=== PATIENT | female | born 1985 | race Caucasian/White ===

== ENCOUNTER 2018-12-31 06:58 | Inpatient (IN) | payer MEDICAID ==
[~2018-12-31] VITALS: Ht 170.2 cm; Wt 63.5 kg
[~2018-12-31 06:58] MED LIST: ASPIRIN; FERR27TA
[2018-12-31 07:11] VITALS: BP 109/70; PULSE 74; Ht 170.2 cm; Wt 63.5 kg
[2018-12-31] MEDS ORDERED: LACTATED RINGER'S 1,000 ML IV PRN (07:48)
[2018-12-31] MEDS ORDERED: METHYLERGONOVINE 0.2 MG INJ IM PRN ×2 (08:00→15:30)
[2018-12-31] MEDS ORDERED: MISOPROSTOL 200 MCG TAB PR PRN ×2 (08:00→15:30)
[2018-12-31] MEDS ORDERED: OXYTOCIN 30 UNITS/LR 500 ML IV PRN ×2 (08:00→15:30)
[2018-12-31] MEDS ORDERED: OXYTOCIN 30 UNITS/LR 500 ML IV SCH ×3 (08:00→15:15)
[2018-12-31] MEDS ORDERED: LIDOCAINE 1% (MPF) 30 ML INJ INJ PRN (08:00)
[2018-12-31] MEDS ORDERED: BUTORPHANOL 2 MG INJ IV PRN ×2 (08:00)
[2018-12-31] MEDS ORDERED: IBUPROFEN 600 MG TAB PO PRN (08:00)
[2018-12-31] MEDS ORDERED: AMPICILLIN 2 GM/NS (PMX) 100 ML IV ONE (08:00)
[2018-12-31] MEDS ORDERED: CARBOPROST 250 MCG INJ IM PRN ×2 (08:00→15:30)
[2018-12-31] MEDS: LACTATED RINGER'S 1,000 ML IV SCH ×2 (09:20→17:25)
[2018-12-31] MEDS ORDERED: FENTAnyl 2MCG/ML-ROPIV 0.2% 100 ML ONE (09:33)
[2018-12-31] MEDS ORDERED: FENTAnyl 2MCG/ML-ROPIV 0.2% 100 ML BAG EPI SCH (10:00)
[2018-12-31] MEDS ORDERED: NALBUPHINE HCL (10 MG/1 ML) INJ IV PRN (10:00)
[2018-12-31] MEDS ORDERED: ONDANSETRON 4 MG INJ IV PRN ×2 (10:00→15:30)
[2018-12-31] MEDS ORDERED: ZOLPIDEM 5 MG TAB PO PRN (10:00)
[2018-12-31] MEDS ORDERED: NALOXONE (0.4 MG/ML) INJ IV PRN (10:00)
[2018-12-31] MEDS ORDERED: BENZOCAINE 20% 56 ML SPRAY TOP PRN (15:30)
[2018-12-31] MEDS ORDERED: CEFAZOLIN 2 GM/50 ML (PMX) 50 ML IVPB ONE (15:30)
[2018-12-31] MEDS ORDERED: ACETAMINOPHEN 325 MG TAB PO PRN ×2 (15:30)
[2018-12-31] MEDS ORDERED: WITCH HAZEL/GLYCERIN PAD PR PRN (15:30)
[2018-12-31] MEDS ORDERED: DIBUCAINE 1% 30 GM OINT TOP PRN (15:30)
[2018-12-31] MEDS ORDERED: MAGNESIUM HYDROXIDE 30ML CUP PO PRN (15:30)
[2018-12-31] MEDS: AMPICILLIN 1 GM/NS (PMX) 50 ML IV SCH ×3 (16:00→20:00)
[2018-12-31] MEDS: LACTATED RINGER'S 1,000 ML IV* SCH ×2 (17:25→23:15)
[2018-12-31] MEDS: IBUPROFEN 600 MG TAB PO PRN (17:31)
[2018-12-31] MEDS: SENNA/DOCUSATE NA (8.6MG/50MG) TAB PO PRN (21:04)
[2019-01-01] MEDS: IBUPROFEN 600 MG TAB PO PRN ×6 (00:08→18:12)
[2019-01-01] MEDS: LANOLIN HPA 1 PKT TOP PRN ×2 (00:09→09:31)
[2019-01-01] MEDS: AMPICILLIN 1 GM/NS (PMX) 50 ML IV SCH ×2 (04:00)
[2019-01-01 08:00] VITALS: BP 108/70; PULSE 56; RESP 16
[2019-01-01] MEDS ORDERED: METHADONE 10 MG TAB PO ONE (09:00)
[2019-01-01] MEDS: SENNA/DOCUSATE NA (8.6MG/50MG) TAB PO PRN (09:31)
[2019-01-01 12:00] VITALS: BP 101/59; PULSE 53; RESP 18
[2019-01-01] MEDS ORDERED: NALOXONE (0.4 MG/ML) INJ IV PRN (13:30)
[2019-01-01 16:10] VITALS: BP 97/57; PULSE 64; RESP 16
[2019-01-01 20:30] VITALS: BP 98/52; PULSE 62; RESP 19
[2019-01-02] MEDS: IBUPROFEN 600 MG TAB PO PRN ×2 (02:32→08:03)
[2019-01-02 04:30] VITALS: BP 109/63; PULSE 55; RESP 18
[2019-01-02 07:30] VITALS: BP 92/63; PULSE 60; RESP 16
[2019-01-02] MEDS ORDERED: METHADONE 10 MG TAB PO ONE (10:30)
== END 2019-01-02 13:55 | disposition home or self-care (01) | DRG 806 ==
LOC: OBT 06:58 → L-D 07:00 → OBT 07:45 → L-D 07:45 → PP1 17:34
PROVIDERS: ADMIT Obstetrics & Gynecology; ATTEND Obstetrics & Gynecology
PROC: 10E0XZZ Delivery of Products of Conception, External Approach (ICD-10-PCS; principal; 2018-12-31)
DX: O80 Encounter for full-term uncomplicated delivery (principal); O98.42 Viral hepatitis complicating childbirth; B19.20 Unspecified viral hepatitis C without hepatic coma; Z37.0 Single live birth; Z3A.38 38 weeks gestation of pregnancy
CPT/HCPCS: 62322; 80307; 81001; 84112; 85025; 85610; 85730; 86592; 86703; 86803; 86850; 86900; 86901; 87086; 87340; 87536; 88307; 99464; G0463; J0290; J0690; J2590; J3010; J7120